=== PATIENT | female | born 1995 | race Hispanic/Latino ===

== ENCOUNTER 2024-10-13 14:28 | Emergency (ER) | payer OTHER, SELFPAY ==
[2024-10-13 14:34] VITALS: BP 154/74
--- NOTE | 2024-10-13 15:31 | ED.GENMED ---
History of Present Illness
General
Chief Complaint: Skin Surface Trauma
Time Seen by Provider: 10/13/24 15:02
History of Present Illness
History of Present Illness:
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
Review of Systems
Review of Systems
Allergies reviewed?: Yes
All Other Systems: ROS reviewed and negative except as documented in HPI and ROS
Phy Exam
Physical Exam
Physical Exam:
GEN: Well appearing, NAD, WDWN
HEENT: Oral mucosa moist, no scleral icterus
Cardiac: Regular rate
Lung: No respiratory distress, no tachypnea
MSK: No gross deformity or injuries
Skin: Good color, no pallor or jaundice. 1 cm curved laceration across the right index finger pad extending from 1 aspect of the nailbed to the other
Neuro: AO x3, moves all extremities freely
Psych: Calm, cooperative
Course
Orders/Labs/Results
Orders:
Orders
10/13/24 15:46
Tetanus/Diphth/Acelpertussis [Adacel] 0.5 ml IM .ONCE ONE
Vital Signs
Initial and Last Documented VS:
Initial Vital Signs
Temp Pulse Resp BP Pulse Ox
98 F 77 16 154/74 99
10/13/24 14:34 10/13/24 14:34 10/13/24 14:34 10/13/24 14:34 10/13/24 14:34
Last Documented Vital Signs
Temp Pulse Resp BP Pulse Ox
98 F 77 16 154/74 99
10/13/24 14:34 10/13/24 14:34 10/13/24 14:34 10/13/24 14:34 10/13/24 14:34
MDM/Problems Addressed
MDM/Problems Addressed:
Wound reapproximated with glue after irrigation, tetanus status updated
*Critical Care Note
Total Time (30-74mins, 75-104mins- exclusive of procedures): Not Applicable
ED Attending Note
-
Portions of this chart may have been created with voice recognition software.� Occasional wrong word or��sound alike� substitutions may have occurred due to the inherent limitations of voice recognition software.
Discharge Plan
Departure
Patient Disposition: Home (Routine Discharge)
Date of Disposition: 10/13/24
Time of Disposition: 15:31
Patient with high blood pressure during this ER visit?: No
Discharge Problem:
Laceration of index finger
Instructions: Laceration Repair With Glue (DC)
Referrals:
NONE,* [Family Provider] -
Activity Restrictions/Additional Instructions:
Keep the finger dry for the next 2 hours; then you may wash and use your hands as normal. Do not scrub the glue. It will gradually dissolve in 5-7 days
Interventions
Interventions:
*Risk Screen - Suicide Last Done: 10/13/24 14:34
*General Assessment Last Done: 10/13/24 15:56
*Neglect/Abuse Screening Last Done: 10/13/24 14:34
*ED- Fall Risk Assessment Last Done: 10/13/24 15:56
*ED COVID-19 Vaccine History Last Done: 10/13/24 15:56
*Nursing Disposition Last Done: 10/13/24 15:57
ED-Skin Assessment Last Done: 10/13/24 15:56
Discharge Date and Time
Discharge Date/Time: 10/13/24 15:59
Print Language: PANAMANIAN
[2024-10-13] MEDS: ADACEL 0.5 ML IM (15:51)
== END 2024-10-13 15:59 | disposition home or self-care (01) ==
LOC: EMR 14:28
PROVIDERS: EMERGENCY PHYSICIAN Emergency Medicine
DX: S61.210A Laceration without foreign body of right index finger without damage to nail, initial encounter (principal); W27.8XXA Contact with other nonpowered hand tool, initial encounter; Y99.0 Civilian activity done for income or pay
CPT/HCPCS: 12001; 90471; 99282; 90715